=== PATIENT | female | born 2005 | race American Indian/Alaskan Native ===

== ENCOUNTER 2025-05-31 20:57 | Emergency (ER) | payer BC ==
[~2025-05-31] VITALS: Ht 149.9 cm; Wt 76.0 kg
[2025-05-31 22:24] LABS: BASOPHILS 0.5 % (0.1-1.2); EOSINOPHILS 1.9 % (0.7-5.8); LYMPHOCYTES 22.8 % (19.3-51.7); MCH 29.5 PG (25.6-32.2); MCHC 33.4 g/dL (32.2-35.5); MCV 88.2 fL (79.4-94.8); MONOCYTES 5.8 % (4.7-12.5); NEUTROPHILS 68.7 % (34.0-71.1); RBC 4.65 M/uL (3.93-5.22)
[2025-05-31 22:46] LABS: ALT (SGPT) 52 U/L (14-59); AST (SGOT) 22 U/L (15-37); GLOMERULAR FILTRATION RATE,EST 130 mL/min (>60); PROTEIN, TOTAL 7.5 g/dL (6.4-8.2); UREA NITROGEN 7 mg/dL (7-18)
[2025-05-31 23:54] VITALS: BP 146/77
== END 2025-06-01 00:07 | disposition home or self-care (01) ==
LOC: ED 20:57
PROVIDERS: Family Medicine
DX: N92.0 Excessive and frequent menstruation with regular cycle (principal); Z87.891 Personal history of nicotine dependence; Z91.048 Other nonmedicinal substance allergy status
CPT/HCPCS: 36415; 76830; 76856; 80053; 84702; 85025; 99284-25